=== PATIENT | female | born 1970 | race Caucasian/White ===

== ENCOUNTER → 2023-10-15 13:08 | Outpatient (REF) | payer BC, SELFPAY | LOC: MRI 3T 13:08 | PROVIDERS: ATTENDING PHYSICIAN Obstetrics & Gynecology; FAMILY PHYSICIAN Physician Assistant Medical; REFERRING PHYSICIAN Surgery | DX: Z71.89 Other specified counseling (principal) | CPT/HCPCS: 77049; A9585 ==

== ENCOUNTER → 2024-06-30 06:23 | Outpatient (REF) | payer BC, SELFPAY | LOC: HWWDC 06:23 | PROVIDERS: ATTENDING PHYSICIAN Physician Assistant Medical; REFERRING PHYSICIAN Surgery | DX: Z12.31 Encounter for screening mammogram for malignant neoplasm of breast (principal) | CPT/HCPCS: 77063; 77067 ==

== ENCOUNTER 2024-07-05 18:57 | Emergency (ER) | payer BC, SELFPAY ==
[2024-07-05 19:00] VITALS: BP 144/88
[2024-07-05 19:35] LABS: % Basophils 0.7 % (0-2); % Eosinophils 3.3 % (0-6); % Immature Granulocytes 0.2 % (0-0.5); % Lymphocytes 20.9 % (20.5-51.1); % Monocytes 6.7 % (1.7-9.3); % Neutrophils 68.2 % (42.2-75.2); Absolute Eosinophils 0.2 10^3/uL (0-0.7); Absolute Lymphocytes 1.3 10^3/uL (1.2-3.4); Absolute Monocytes 0.4 10^3/uL (0.1-0.6); Absolute Neutrophils 4.1 10^3/uL (1.4-6.5); Hemoglobin 13.8 g/dL (12.0-16.0); Mean Corp Hgb Conc. 32.9 g/dL (33.0-37.0); Mean Corpuscular Hgb 31.4 pg (27.0-31.0); Mean Corpuscular Volume 95.5 fL (81.0-99.0); Mean Platelet Volume 9.5 fL (7.4-10.4); Nucleated Red Blood Cells % 0 %; Platelet Count 217 10^3/uL (130-400); Red Cell Dist. Width 12.8 % (11.5-14.5)
[2024-07-05 19:50] LABS: Lactic Acid < 0.5 mmol/L (0.7-2.0)
[2024-07-05 19:54] LABS: ALT (SGPT) 558 U/L (0-35); AST (SGOT) 498 U/L (14-36); Albumin 4.6 g/dl (3.5-5.0); Alkaline Phosphatase 132 U/L (38-126); Blood Urea Nitrogen 26 mg/dl (7-17); Calcium 9.8 mg/dl (8.4-10.2); Carbon Dioxide 30 mmol/L (22-30); Chloride 102 mmol/L (98-107); Glucose 90 mg/dl (70-99); Potassium 5.2 mmol/L (3.5-5.1); Sodium 138 mmol/L (135-145); Total Bilirubin 0.6 mg/dl (0.2-1.3); Total Protein 7.2 g/dl (6.3-8.2); eGFR > 60.00
[2024-07-05 20:04] LABS: Lipase 78 U/L (23-300)
[2024-07-05 20:30] VITALS: BP 140/72
[2024-07-05 20:40] VITALS: BMI 30.8
--- NOTE | 2024-07-05 20:57 | ED.GENMED ---
History of Present Illness
<Dominguez Serrano, DO - Last Filed: 07/05/24 22:19>
General
Chief Complaint: Abdominal Symptoms
Source: patient and spouse
Exam Limitations: none
Time Seen by Provider: 07/05/24 20:32
Nursing documentation reviewed up to this point in time: agreed with
History of Present Illness
History of Present Illness:
53-year-old female presents emergency department due to diffuse abdominal pain and nausea for the past day.
Past History
<Dominguez Serrano, DO - Last Filed: 07/05/24 22:19>
Past History
ED Past Medical History: Other (Autoimmune hepatitis)
ED Past Surgical History: Appendectomy, Cholecystectomy, Gynecological (Hysterectomy) and Other (Liver biopsy, hernia repair, biliopancreatic diversion with duodenal switch)
Social History
Tobacco: Non-smoker
Alcohol: None
Drug: None
Personal:
Living: with family
Review of Systems
<Dominguez Serrano, DO - Last Filed: 07/05/24 22:19>
Review of Systems
Allergies reviewed?: Yes
All Other Systems: Not applicable
Constitutional: Reports no symptoms
EENT: Reports no symptoms
Respiratory: Reports no symptoms
Cardiac: Reports no symptoms
ABD/GI: Reports abdominal pain, nausea and vomiting
: Reports no symptoms
Musculoskeletal: Reports no symptoms
Skin: Reports no symptoms
Neurological: Reports no symptoms
Endocrine: Reports no symptoms
Hematologic/Lymphatic: Reports no symptoms
Psychiatric: Reports no symptoms
Phy Exam
<Dominguez Serrano, DO - Last Filed: 07/05/24 22:19>
Physical Exam
Physical Exam:
Physical Exam
General: Appears uncomfortable, afebrile
Neck: supple. no meningeal signs. normal posterior pharynx
Heart: s1/s2 regular rate and rhythm, no murmur. equal radial
pulses.
HEENT: Pupils equal round reactive to light, EOMI
Lungs: no acute respiratory distress. clear bilaterally
Abdomen: normal bowel sounds. Diffuse abdominal tenderness. Abdominal surgical scars from multiple surgeries. no CVAT
Neuro: alert and oriented. no focal neurological deficits cranial nerves II through XII intact
Skin: no rash
Psychiatric: well kept. interactive and cooperative
Extremities: no edema. no calf tenderness. negative homans. good distal pulses
Course
<Dominguez Serrano, DO - Last Filed: 07/05/24 22:19>
Orders/Labs/Results
Orders:
Orders
07/05/24 19:14
Complete Blood Count/With Diff Urgent
Comprehensive Metabolic Panel Urgent
Lactic Acid Urgent
Lipase Urgent
07/05/24 20:54
Iohexol [Omnipaque] See Protocol PO NOW STA
07/05/24 20:55
CT Abd/pel W Iv And Oral Contr Urgent
Comment:
Reason For Exam: diffuse abd pain, increased lfts, gastric bypass
07/05/24 21:49
Urinalysis Reflex To Culture Urgent
Date Specimen was Collected: 07/05/24
Time Specimen was Collected: 21:47
Urine Microscopic Reflex Cult Urgent
Urine Culture Urgent
DIANA Source: U
Specimen Description:
Date Specimen was Collected: 07/05/24
Time Specimen was Collected: 21:47
07/05/24 23:39
Ketorolac [Toradol] 15 mg IV NOW STA
Abnormal Lab Results
07/05/24 07/05/24
19:14 21:49
MCH 31.4 H pg
(27.0-31.0)
MCHC 32.9 L g/dL
(33.0-37.0)
Potassium 5.2 H mmol/L
(3.5-5.1)
BUN 26 H mg/dl
(7-17)
Creatinine 0.5 L mg/dL
(0.6-1.0)
Lactic Acid < 0.5 L mmol/L
(0.7-2.0)
AST 498 H U/L
(14-36)
ALT 558 H* U/L
(0-35)
Alkaline Phosphatase 132 H U/L
(38-126)
Leukocyte Esterase Rfl 3+ A
(Negative)
Urine Bacteria (Reflex) Few A
(Negative)
07/05/24 19:14
07/05/24 19:14
Vital Signs
Initial and Last Documented VS:
Initial Vital Signs
Temp Pulse Resp BP Pulse Ox
98.2 F 68 20 144/88 99
07/05/24 19:00 07/05/24 19:00 07/05/24 19:00 07/05/24 19:00 07/05/24 19:00
Last Documented Vital Signs
Temp Pulse Resp BP Pulse Ox
98.2 F 60 17 146/78 95
07/05/24 19:00 07/05/24 23:00 07/05/24 23:00 07/05/24 23:00 07/05/24 23:00
<Nan Avery, DO - Last Filed: 07/06/24 01:00>
Orders/Labs/Results
Orders:
Orders
07/05/24 19:14
Complete Blood Count/With Diff Urgent
Comprehensive Metabolic Panel Urgent
Lactic Acid Urgent
Lipase Urgent
07/05/24 20:54
Iohexol [Omnipaque] See Protocol PO NOW STA
07/05/24 20:55
CT Abd/pel W Iv And Oral Contr Urgent
Comment:
Reason For Exam: diffuse abd pain, increased lfts, gastric bypass
07/05/24 21:49
Urinalysis Reflex To Culture Urgent
Date Specimen was Collected: 07/05/24
Time Specimen was Collected: 21:47
Urine Microscopic Reflex Cult Urgent
Urine Culture Urgent
DIANA Source: U
Specimen Description:
Date Specimen was Collected: 07/05/24
Time Specimen was Collected: 21:47
07/05/24 23:39
Ketorolac [Toradol] 15 mg IV NOW STA
Abnormal Lab Results
07/05/24 07/05/24
19:14 21:49
MCH 31.4 H pg
(27.0-31.0)
MCHC 32.9 L g/dL
(33.0-37.0)
Potassium 5.2 H mmol/L
(3.5-5.1)
BUN 26 H mg/dl
(7-17)
Creatinine 0.5 L mg/dL
(0.6-1.0)
Lactic Acid < 0.5 L mmol/L
(0.7-2.0)
AST 498 H U/L
(14-36)
ALT 558 H* U/L
(0-35)
Alkaline Phosphatase 132 H U/L
(38-126)
Leukocyte Esterase Rfl 3+ A
(Negative)
Urine Bacteria (Reflex) Few A
(Negative)
07/05/24 19:14
07/05/24 19:14
Vital Signs
Initial and Last Documented VS:
Initial Vital Signs
Temp Pulse Resp BP Pulse Ox
98.2 F 68 20 144/88 99
07/05/24 19:00 07/05/24 19:00 07/05/24 19:00 07/05/24 19:00 07/05/24 19:00
Last Documented Vital Signs
Temp Pulse Resp BP Pulse Ox
98.2 F 60 17 146/78 95
07/05/24 19:00 07/05/24 23:00 07/05/24 23:00 07/05/24 23:00 07/05/24 23:00
<Dominguez Serrano, DO - Last Filed: 07/05/24 22:19>
MDM/Problems Addressed
Differential Diagnosis Includes:
Bowel obstruction, pancreatitis, autoimmune hepatitis
MDM/Problems Addressed:
53-year-old female with diffuse abdominal pain, autoimmune hepatitis concern for bowel obstruction. CT abdomen pelvis pending.
<Nan Avery DO - Last Filed: 07/06/24 01:00>
*Radiology
Radiology exam reviewed: radiology read reviewed
*Pulse Oximetry
Patient hypoxic: no
*Critical Care Note
Total Time (30-74mins, 75-104mins- exclusive of procedures): Not Applicable
<Nan Avery DO - Last Filed: 07/06/24 01:00>
Update Note
Update Note:
00:45
Patient notes marked improvement in pain after IV Toradol. Resting comfortably.
Has tolerated 2 cups of oral contrast without vomiting.
She does continue with mild epigastric, right upper quadrant tenderness with deep palpation only.
CAT scan shows moderate stool within the ascending and transverse colon without obstruction. Small hiatal hernia. Evidence of gastric bypass/postsurgical changes but no evidence of obstruction. Left hepatic lobe capsular calcifications�presumably
from old insult�is likely from prior liver biopsy.
LFTs moderately elevated at 500, patient states liver enzymes a few weeks ago were around 400 which is improved from previous of over 600.
She has known history of autoimmune hepatitis, follows with [facility] rheumatology at [place] and thus far has not required specific treatment.
Her right upper quadrant discomfort and uptrend in LFTs could be related to exacerbation of her autoimmune hepatitis and recommend prompt follow-up with her v[facility] rheumatology at [place].
She is chronically maintained on Protonix 40 mg daily. She has Zofran at home for as needed nausea. She takes ibuprofen as needed for pain and continues to avoid Tylenol and alcoholic beverages.
Patient comfortable with discharge to home and plans to call her [facility] rheumatology tomorrow.
Return precautions discussed.
ED Attending Note
<Dominguez Serrano, DO - Last Filed: 07/05/24 22:19>
-
Portions of this chart may have been created with voice recognition software.� Occasional wrong word or��sound alike� substitutions may have occurred due to the inherent limitations of voice recognition software.
Discharge Plan
Departure
Patient Disposition: Home (Routine Discharge)
Date of Disposition: 07/06/24
Time of Disposition: 00:54
Patient with high blood pressure during this ER visit?: No
Condition: Good
Discharge Problem:
Acute upper abdominal pain, Autoimmune hepatitis
Instructions: Abdominal Pain
Prescriptions:
No Action
vitamin A 2,400 mcg Capsule
2,400 mcg PO DAILY
montelukast [Singulair] 10 mg Tablet
10 mg PO DAILY
Bariatric Multivitamins 45 mg iron- 800 mcg-120 mcg Capsule
1 cap PO TID
zinc sulfate 50 mg zinc (220 mg) Tablet
50 mg PO DAILY
calcium carbonate [Calcium 500] 500 mg calcium (1,250 mg) Tablet
500 mg PO TID
ascorbic acid (vitamin C) [Vitamin C] 500 mg Tablet
500 mg PO DAILY
pantoprazole 40 mg Tablet,Delayed Release (Dr/Ec)
40 mg PO HS
cyanocobalamin (vitamin B-12) 1,000 mcg/mL Solution
1,000 mcg SC QMONTH
olopatadine [Patanol] 0.1 % Drops
1 drp BOTH EYES BID
mometasone [Nasonex] 50 mcg/actuation [employer],Non-Aerosol
2 spray INTRANASAL BID
ergocalciferol (vitamin D2) 1,250 mcg (50,000 unit) Capsule
1,250 mcg PO MOTUWETH
simethicone [Gas-X] 80 mg Tablet,Chewable
160 mg PO DAILYPRN PRN (Reason: gas/stomach ache)
duloxetine 30 mg Capsule,Delayed Release(Dr/Ec)
30 mg PO HS
Rx Instructions:
take with 60mg cap for total of 90mg
duloxetine 60 mg Capsule,Delayed Release(Dr/Ec)
60 mg PO HS
Rx Instructions:
take with 30mg cap for total of 90mg
cholecalciferol (vitamin D3) [Vitamin D3] 125 mcg (5,000 unit) Tablet
125 mcg PO DAILY
cholecalciferol (vitamin D3) 10 mcg/5 mL (400 unit/5 mL) Liquid
10 mcg PO BID
Tymlos 80 mcg (3,120 mcg/1.56 mL) Pen Injector
80 mcg SC HS
magnesium citrate,mag oxide 250 mg Capsule
250 mg PO DAILY
Zepbound 7.5 mg/0.5 mL Pen Injector
7.5 mg SC FR
Referrals:
Esther Mccartney PA-C [Family Provider] -
Activity Restrictions/Additional Instructions:
Call your [facility] rheumatology in the morning for prompt follow-up regarding upper abdominal discomfort and uptrend in liver enzymes.
Interventions
Interventions:
*General Assessment Last Done: 07/05/24 19:00
*Neglect/Abuse Screening Last Done: 07/05/24 21:07
*ED COVID-19 Vaccine History Last Done: 07/05/24 21:06
VY-Bgfgrv-Akzicnkchk Assessment Last Done: 07/05/24 21:00
Discharge Date and Time
Print Language: SLOVAK
[2024-07-05 21:05] VITALS: BP 142/71
[2024-07-05] MEDS: OMNIPAQUE 50 ML PO (21:23)
[2024-07-05 22:00] VITALS: BP 143/57
[2024-07-05 22:02] LABS: Urine Albumin Negative (Neg - Trace); Urine Bilirubin Negative (Negative); Urine Character Clear (Clear); Urine Color Yellow; Urine Glucose Negative (Negative); Urine Ketone Negative (Negative); Urine Leukocyte 3+ (Negative); Urine Nitrite Negative (Negative); Urine Occult Blood Negative (Negative); Urine Urobilinogen Negative (Neg - 1+)
[2024-07-05 22:09] LABS: Urine Bacteria Few (Negative); Urine Red Blood Cell 0-2 /HPF (0-2); Urine Squamous Cell 0-2 /LPF (Few)
[2024-07-05 22:10] LABS: Urine Mucus Few
[2024-07-05 23:00] VITALS: BP 146/78
[2024-07-05] MEDS: TORADOL 15 MG IV (23:44)
[2024-07-06] VITALS: BP 112/61
== END 2024-07-06 01:06 | disposition home or self-care (01) ==
LOC: EMR 18:57
PROVIDERS: Emergency Medicine; EMERGENCY PHYSICIAN Emergency Medicine; FAMILY PHYSICIAN Physician Assistant Medical
DX: R10.10 Upper abdominal pain, unspecified (principal); K75.4 Autoimmune hepatitis; Z79.899 Other long term (current) drug therapy; Z90.3 Acquired absence of stomach [part of]; Z90.49 Acquired absence of other specified parts of digestive tract; Z90.710 Acquired absence of both cervix and uterus; Z98.84 Bariatric surgery status
CPT/HCPCS: 99284; 96374; 74177; 80053; 81003; 81015; 83605; 83690; 85025; 87086; Q9967